=== PATIENT | female | born 1945 | race Caucasian/White ===

== ENCOUNTER → 2020-10-05 11:56 | Outpatient (CLI) | payer MEDICARE, OTHER, SELFPAY ==
--- NOTE | 2020-10-05 12:02 | DI.RAD.S_ITS ---
PROCEDURE: XR WRIST RT MIN 3V INDICATIONS: RIGHT WRIST SWELLING/PAIN TECHNIQUE: 3 views of the wrist were acquired. COMPARISON: None. FINDINGS: Bones: No fractures or dislocations. No suspicious bony lesions. Diffuse carpal joint degeneration. Sub 5 mm marginal lucency seen at the 2nd MTP joint, and the lunate. There is 2nd and 3rd MCP joint degeneration. Soft tissues: No suspicious soft tissue calcifications. IMPRESSION: Severe diffuse degenerative changes. If the patient's pain or other symptoms persist, consider further evaluation with MRI Dictated by: Isauro Sagastume M.D. on 10/05/2020 at 13:36 Approved by: Isauro Sagastume M.D. on 10/05/2020 at 13:39
[2020-10-05 12:56] LABS: Add Manual Diff / Slide Review NO; Basophils Absolute Auto 0 /uL (0-100); Basophils Percent Auto 0.5 % (0-2); Eosinophils Absolute Auto 100 /uL (0-450); Hemoglobin 12.2 g/dL (12.0-16.0); Lymphocytes Absolute Auto 1300 /uL (1100-4500); Lymphocytes Percent Auto 17.7 % (25-40); Mean Corpuscular HGB Conc 33.9 % (30-36); Mean Corpuscular Hemoglobin 31.9 PG (26-34); Mean Corpuscular Volume 93.8 fL (80-100); Monocytes Absolute Auto 500 /uL (0-900); Monocytes Percent Auto 7.1 % (3-14); Neutrophils Absolute Auto 5400 /uL (1500-7000); Neutrophils Percent Auto 73.7 % (50-75); Platelet Count 307 X10^3/uL (150-400); Red Blood Cell Count 3.84 X10^6/uL (4.0-5.2); Red Cell Distribution Width 12.5 % (11.6-14.8); White Blood Cell Count 7.3 X10^3/uL (4.5-11.0)
[2020-10-05 13:16] LABS: Erythrocyte Sedimentation Rate 34 MM/HR (0-20)
[2020-10-05 13:34] LABS: Alanine Aminotransferase 17 IU/L (<35); Albumin 4.4 g/dL (3.5-5.0); Albumin Globulin Ratio 1.3 (1.0-2.8); Alkaline Phosphatase 60 U/L (38-126); Aspartate Aminotransferase 24 IU/L (14-36); BUN Creatinine Ratio 28.6 (6-22); Bilirubin Total 0.5 mg/dL (0.2-1.3); Blood Urea Nitrogen 16 mg/dL (7-17); C-Reactive Protein Quant 1.6 mg/dL (<1.0); Calcium 9.6 mg/dL (8.4-10.2); Carbon Dioxide 33 mmol/L (22-32); Chloride 99 mmol/L (98-107); Cholesterol 240 mg/dL (140-199); Estimated Glomerular Filt Rate > 60.0 mL/min (>60); Globulin 3.3 g/dL (1.7-4.1); Glucose 95 mg/dL (80-110); HDL Cholesterol 52 mg/dL (40-60); HEMOLYSIS < 15 (0-50); LDL Cholesterol Calculated 153 mg/dL (<100); Potassium 4.9 mmol/L (3.4-5.1); Sodium 137 mmol/L (137-145); Total Protein 7.7 g/dL (6.3-8.2); Triglycerides 174 mg/dL (35-150)
[2020-10-05 14:01] LABS: TSH w/ Reflex to FT4 2.42 uIU/mL (0.47-4.68)
[2020-10-05 16:24] LABS: Rheumatoid Factor < 8.6 IU/mL (<12.0)
[2020-10-09 00:09] LABS: CCP Antibodies IgG/IgA 3 units (0-19)
== END ==
PROVIDERS: PCP Family Medicine; Referring Provider Family Medicine; Visit Provider Family Medicine
DX: M25.431 Effusion, right wrist (principal); M25.50 Pain in unspecified joint; M25.531 Pain in right wrist; M25.439 Effusion, unspecified wrist; M25.539 Pain in unspecified wrist; E78.5 Hyperlipidemia, unspecified
CPT/HCPCS: 36415; 73110; 80053; 80061; 84443; 85025; 85651; 86140; 86200; 86430

== ENCOUNTER → 2020-11-08 14:46 | Outpatient (CLI) | payer MEDICARE, OTHER, SELFPAY ==
[2020-11-08 15:40] LABS: Add Manual Diff / Slide Review NO; Basophils Absolute Auto 0 /uL (0-100); Basophils Percent Auto 0.3 % (0-2); Eosinophils Absolute Auto 0 /uL (0-450); Eosinophils Percent Auto 0.6 % (2-4); Hematocrit 34.1 % (36-46); Hemoglobin 11.6 g/dL (12.0-16.0); Lymphocytes Absolute Auto 900 /uL (1100-4500); Lymphocytes Percent Auto 11.8 % (25-40); Mean Corpuscular HGB Conc 33.8 % (30-36); Mean Corpuscular Hemoglobin 31.6 PG (26-34); Mean Corpuscular Volume 93.5 fL (80-100); Monocytes Absolute Auto 600 /uL (0-900); Monocytes Percent Auto 8.6 % (3-14); Neutrophils Absolute Auto 5700 /uL (1500-7000); Neutrophils Percent Auto 78.7 % (50-75); Platelet Count 356 X10^3/uL (150-400); Red Blood Cell Count 3.65 X10^6/uL (4.0-5.2); Red Cell Distribution Width 12.5 % (11.6-14.8); White Blood Cell Count 7.2 X10^3/uL (4.5-11.0)
[2020-11-08 15:55] LABS: C-Reactive Protein Quant 3.2 mg/dL (<1.0)
[2020-11-08 16:31] LABS: Erythrocyte Sedimentation Rate 48 MM/HR (0-20)
== END ==
PROVIDERS: PCP Family Medicine; Referring Provider Family Medicine; Visit Provider Family Medicine
DX: M25.439 Effusion, unspecified wrist (principal); M25.531 Pain in right wrist; M25.532 Pain in left wrist
CPT/HCPCS: 36415; 85025; 85651; 86140

== ENCOUNTER 2021-02-19 16:44 | Emergency (ER) | payer MEDICARE, OTHER, SELFPAY ==
[2021-02-19] VITALS (10 sets, daily range): BP systolic 126–216; BP diastolic 61–93; PULSE 67–77; RESP 14–16; TEMP 36.7; O2SAT 97–100; BMI 24.9
--- NOTE | 2021-02-19 16:50 | DI.RAD.S_ITS ---
PROCEDURE: XR WRIST LT MIN 3V INDICATIONS: fall with pain TECHNIQUE: 4 views of the wrist were acquired. COMPARISON: [facility], CR, XR WRIST RT MIN 3V, 10/05/2020, 12:14. FINDINGS: Bones: Mildly comminuted, displaced fracture of the distal left radius with dorsal angulation of the distal fracture fragment. No definite intra-articular extension. Moderate degenerative changes of the radiocarpal joint. Severe degenerative changes of the left 1st carpometacarpal joint.. No suspicious bony lesions. Scaphoid view: Visualized portion of the scaphoid appear intact. Soft tissues: No suspicious soft tissue calcifications. IMPRESSION: Mildly comminuted, displaced distal left radial fracture with dorsal angulation of the distal fracture fragment. No definite intra-articular extension identified. Moderate-severe background degenerative changes of the left 1st carpometacarpal joint and distal radiocarpal joint. Dictated by: Jimy oY M.D. on 02/19/2021 at 18:02 Approved by: Jimy Yo M.D. on 02/19/2021 at 18:04
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
[2021-02-19] MEDS: LIDO 1%/SOD BICARB 8.4% (10ML) 10 ML SYRINGE INJ (17:53)
[2021-02-19] MEDS: HYDROMORPHONE 1 MG INJ IM (18:01)
--- NOTE | 2021-02-19 18:33 | DI.RAD.S_ITS ---
PROCEDURE: XR WRIST LT MIN 3V INDICATIONS: post reduction TECHNIQUE: 3 views of the wrist were acquired. COMPARISON: [facility], CR, XR WRIST LT MIN 3V, 02/19/2021, 16:59. FINDINGS: Bones: Status post interval closed reduction and splinting of known mildly comminuted distal left radial fracture. There appears to be a fracture line extending to the articular surface of the radiocarpal joint. Post reduction alignment is improved. Mild persistent dorsal displacement of the distal fracture fragment. Stable appearance of advanced degenerative changes of the left 1st carpometacarpal joint. No suspicious bony lesions. Soft tissues: No suspicious soft tissue calcifications. IMPRESSION: Status post interval closed reduction and splinting of mildly comminuted distal left radial fracture with intra-articular extension to the distal radiocarpal joint. There is improved alignment with persistent dorsal displacement of the distal fracture fragment. Redemonstration of advanced background degenerative changes of the left hand and wrist. Dictated by: Jimy Yo M.D. on 02/19/2021 at 19:19 Approved by: Jimy Yo M.D. on 02/19/2021 at 19:22
== END 2021-02-19 19:02 | disposition home or self-care (01) ==
PROVIDERS: Emergency Provider Emergency Medicine; PCP Family Medicine
DX: S01.01XA Laceration without foreign body of scalp, initial encounter (principal); S52.502A Unspecified fracture of the lower end of left radius, initial encounter for closed fracture; W19.XXXA Unspecified fall, initial encounter
CPT/HCPCS: 12001; 25605; 29125; 70450; 73110; 96372; 99284; J1170

== ENCOUNTER → 2021-02-24 10:18 | Outpatient (CLI) | payer MEDICARE, OTHER, SELFPAY ==
[2021-02-24 11:27] LABS: COVID19 -Nasal RAPID Negative (Negative)
== END ==
PROVIDERS: PCP Family Medicine; Visit Provider Physician Assistant
DX: Z01.812 Encounter for preprocedural laboratory examination (principal); Z20.822 Contact with and (suspected) exposure to COVID-19
CPT/HCPCS: 87635; C9803

== ENCOUNTER 2021-02-26 10:41 | Day surgery (SDC) | payer MEDICARE, OTHER, SELFPAY ==
[2021-02-22 07:59] VITALS: BMI 23.0
[2021-02-26] VITALS (8 sets, daily range): BP systolic 125–151; BP diastolic 64–88; PULSE 67–77; RESP 11–19; TEMP 36.1–36.6; O2SAT 96–100; BMI 23.0
[2021-02-26] MEDS: LACTATED RINGERS 1,000 ML 42 ML IV (11:21)
--- NOTE | 2021-02-26 12:42 | PM.PREOP ---
Pre-operative Note COVID-19 COVID-19 status: Positive Result date/Date tested (Pos, Neg/Pending): 02/24/21 Interval Note History & Physical reviewed/Exam performed by Physician: Yes Changes to H&P: No
[2021-02-26] MEDS: CEFAZOLIN 1 GM/50 ML FROZ.PIGGY IV (13:07)
--- NOTE | 2021-02-26 13:31 | SUR.OPER ---
Supine on padded OR bed, head on pillow, RIGHT ARM secured on padded arm board at <90 degrees abduction, legs uncrossed, safety belt at thigh, tape over blanket over lower legs.LEFT ARM TO HAND TABLE
[2021-02-26] MEDS: BUPIVACAINE 0.5% (PF) VIAL 30 ML INJ (13:43)
--- NOTE | 2021-02-26 14:35 | P.OP_ITS ---
Operative Date/Time/Diagnoses Date of procedure: 02/26/21 Time of procedure: 14:35 Pre-op diagnosis: Left distal radius fracture Post-op diagnosis: same Procedure & Clinicians Procedure: Open reduction internal fixation of left distal radius fracture Same procedure as scheduled: Yes Indications: The patient is a 75-year-old woman who broke her non dominant left wrist last week in a fall. She has a displaced fracture and after discussion the risks benefits and alternatives she has agreed open reduction internal fixation. Risks discussed included but were not limited to: Failure to improve, stiffness, infection, nerve damage, deep venous thrombosis, pulmonary embolism, stroke, myocardial infarction, permanent paralysis, aspiration p neumonia and . Surgeon: Tyler Hill Click Yes if Unassisted: Yes Anesthesia Type: General and Local Operative Notes Findings: Anatomic fracture reduction Closure Type: primary Specimen(s): none sent Prosthetic devices, grafts, tissues, transplants, or devices: Implants used in this procedure were manufactured by the [employer] and included a left distal radius plate with 5 distal and 2 proximal screws. Applied: implant(s) Estimated Blood Loss (mL): 10 Tourniquet time (min): 36 Procedure in detail: The patient was seen in the preoperative area where she identified her left wrist as the operative site and this was marked with my initials. She received preoperative antibiotics and was taken to the operating room and placed on the operating room table in a supine position. She underwent induction with general anesthetic. Following the onset of general anesthesia, her splint was removed and a tourniquet was placed about her proximal left arm. Left arm was prepared from the fingertips to the tourniquet with ChloraPrep and draped through sterile drapes. Prior to prepping and draping a time study technologist-out was performed. The left arm was elevated and exsanguinated with an Esmarch bandage. Approximately 8 cm incision was created overlying the flexor carpi radialis tendon sheath with a slight diagonal band distally at the wrist crease. The wrist crease was not fully crossed. The sheath of the flexor carpi radialis was opened and the tendon retracted to the ulnar side. The floor of the sheath was opened. The flexor pollicis longus was identified and retracted to the ulnar side. The pronator quadratus was then released from the radial side of the distal radius and elevated from the palmar surface of the bone again taken to the ulnar side. A self retaining retractor was placed. The fracture was booked open and hematoma cleaned from the fracture site. A reduction maneuver was performed. The appropriate length distal radius plate was applied to the radial shaft and the position of the plate was verified as being appropriate on the lateral view on fluoroscopy. The 1st screw was placed through the slotted hole on the proximal part of the plate. I then confirmed that the reduction against the plate was appropriate and a screw was placed distally. The initial distal screw was a nonlocking screw to bring the distal fragment to the plate. This was repeated with a 2nd nonlocking screw. An additional 3 screws were placed which were locking screws. After confirming that all the screws were appropriately positioned and none had penetrated the wrist joint, the final proximal screw was placed. Final AP and lateral fluoroscopic views were obtained. At this point the wound was irrigated, the pronator quadratus was laid back across the plate. Closure was not performed as the bulk of the plate prevented reapproximation of the muscle to its origin. The remaining tendons were allowed to fall into their anatomic position. The tourniquet was deflated and hemostasis obtained with electrocautery. The wound was closed with interrupted 3-0 Vicryl and a running 4-0 Monocryl suture with Steri-Strips. The superficial tissues were injected with 2 mL 0.5% Marcaine for postoperative pain control. Dressings of sterile 4x4s, sterile cast padding and a volar splint were applied. The patient was then transferred from the operating room to the recovery room in good condition having tolerated the procedure well. Complications: none Post-operative Condition: stable Disposition: PACU Plan for aftercare: The patient will be maintained in a postoperative splint till follow-up. At that point she will be allowed to wear removable Velcro splint for an additional 4-6 weeks. She will be discharged today with follow-up in 2 weeks. A prescription for oxycodone has been sent to the pharmacy for her.
[2021-02-26] MEDS: OXYCODONE IR 5 MG TABLET PO (14:57)
[2021-02-26] MEDS: OXYCODONE/ACETAMINOPHEN 5/325 TABLET 1 TAB PO (15:26)
== END 2021-02-26 15:40 | disposition home or self-care (01) ==
PROVIDERS: PCP Family Medicine; Referring Provider Orthopaedic Surgery; Visit Provider Orthopaedic Surgery
PROC: (CPT 25607; principal; 2021-02-26 12:45)
DX: S52.532A Colles' fracture of left radius, initial encounter for closed fracture (principal); W19.XXXA Unspecified fall, initial encounter; M06.9 Rheumatoid arthritis, unspecified; M81.0 Age-related osteoporosis without current pathological fracture
CPT/HCPCS: 25607; J1100; J2405; J2704; J3010

== ENCOUNTER → 2021-07-05 11:20 | Outpatient (CLI) | payer MEDICARE, OTHER, SELFPAY ==
[2021-07-05 12:03] LABS: COVID19 -Nasal RAPID Negative (Negative)
== END ==
PROVIDERS: PCP Family Medicine; Visit Provider Specialist
DX: Z01.812 Encounter for preprocedural laboratory examination (principal); Z20.822 Contact with and (suspected) exposure to COVID-19
CPT/HCPCS: 87635

== ENCOUNTER 2021-07-06 06:32 | Day surgery (SDC) | payer MEDICARE, OTHER, SELFPAY ==
[2021-07-04 12:37] VITALS: BMI 24.1
[2021-07-06] VITALS (15 sets, daily range): BP systolic 120–148; BP diastolic 54–92; PULSE 59–88; RESP 9–18; TEMP 36.3–37.2; O2SAT 96–100; BMI 24.1
--- NOTE | 2021-07-06 | PATH_ITS ---
[facility] Accession Number: [id number] . 01 Material submitted: . uterus - UTERUS AND CERVIX . 01 Diagnosis: A. Uterine and Cervix, Hysterectomy: - Cervix: Denuded, extensively inflamed with focal parakeratosis consistent with prolapse-type changes, and with mild atypia, favor reactive; negative for dysplasia and malignancy. - Endometrium: Benign nonproliferative endometrium with features of atrophy. - Myometrium: Within normal limits. MRV 07/10/2021 1628 Local . 01 Electronically signed: . Juliet Guidry MD, Pathologist NPI- [id number] . 01 Gross description: . The specimen is received in formalin, labeled uterus and cervix, and consists of a 53 g uterus and cervix measuring 8.0 cm from superior fundus to cervix by 4.7 cm from cornu to cornu by 2.8 cm from anterior to posterior. The serosa is keenan-pink and smooth with multiple irregular translucent subserosal cysts ranging from 0.1 cm to 0.3 cm. The keenan-pink, wrinkled, and focally hemorrhagic ectocervix measures 4.0 x 3.2 cm, and there is a 0.5 x 0.2 cm os. The specimen is bivalved to reveal a keenan, herringbone, and cystic endocervix. The endometrial cavity measures 3.0 x 1.5 cm and displays a keenan-pink, glistening endometrium measuring 0.1 cm in thickness. The myometrium is keenan-pink and trabeculated, measuring 1.4 cm in thickness. Duty Engineer sections are submitted. . A1: Anterior cervix. A2: Posterior cervix. A3: Anterior uterus, full-thickness cross-section. A4: Posterior uterus, full-thickness cross-section. ([id number]) /FRR 07/07/2021 1625 [facility] . 01 Pathologist provided ICD-10: N81.4, N81.10 . 01 CPT . 933688 Performed at: 01 [facility] [address] [place] [address], [place], [place] [id number] MD Thomas Marie MD Phone: [phone]
[2021-07-06] MEDS: LACTATED RINGERS 1,000 ML 100 ML IV ×3 (07:02→21:48)
--- NOTE | 2021-07-06 07:23 | PM.PREOP ---
Pre-operative Note COVID-19 COVID-19 status: Negative Result date/Date tested (Pos, Neg/Pending): 07/05/21 Interval Note History & Physical reviewed/Exam performed by Physician: Yes Changes to H&P: No
[2021-07-06] MEDS: CEFAZOLIN 1 GM VIAL 2 GM IV (09:58)
--- NOTE | 2021-07-06 10:09 | SUR.OPER ---
Lithotomy on padded OR bed, head on pillow, arms secured on padded arm boards at <90 degrees abduction. Legs secured in padded yellow fins stirrups.
[2021-07-06] MEDS: BUPIVACAINE 0.5% (PF) VIAL 30 ML INJ (10:26)
[2021-07-06] MEDS: ACETAMINOPHEN IV 1,000 MG/100 ML VIAL 400 MG IV (10:33)
--- NOTE | 2021-07-06 11:46 | PM.OP.1 ---
Operative Date/Time/Diagnoses Date of procedure: 07/06/21 Time of procedure: 11:46 Pre-op diagnosis: Symptomatic uterovaginal prolapse Post-op diagnosis: same Procedure & Clinicians Procedure: Total vaginal hysterectomy with anterior and posterior repair and bilateral sacrospinous ligament fixation Same procedure as scheduled: Yes Indications: Symptomatic partial uterovaginal prolapse Surgeon: Ximena Ruiz Project Portfolio Analyst: Korey Dhillon Click Yes if Unassisted: No Anesthesia Type: General Operative Notes Findings: Cystocele, rectocele, uterine prolapse with normal uterus, tubes status post tubal ligation and ovaries Closure Type: primary Specimen(s): other (Uterus) Applied: catheter (Varghese) and other (Vaginal packing) Estimated Blood Loss (mL): 50 Blood products transfused: none Procedure in detail: Patient was brought to the operating room where she was placed in yellowfin stirrups and prepped and draped in the usual sterile fashion. A check system was reviewed prior to the beginning of the case. Pulsatile stockings were in place and functional throughout the case. Warming was in place. 2 g of Ancef were in prior to beginning of the case. A Varghese catheter was placed. A single-tooth tenaculum was placed on the posterior lip of the cervix and a colpotomy incision was made. The peritoneum was sutured to the posterior vaginal wall. The uterosacral ligaments were clamped cut and ligated with 0 Vicryl suture which was used throughout the rest the case unless otherwise indicated. A scalpel was used to circumscribe the cervix and the bladder pushed superiorly. The bladder pillars were clamped cut and ligated. Keeping the bladder pushed superiorly sequential bites were taken of the cardinal and broad ligaments with the LigaSure. Anterior colpotomy incision was made and the bladder held away from the uterus. The rest of the attachments of the uterus including the broad ligament and the utero-ovarian ligaments were clamped and ligated. The uterus was removed intact. Dr. Dhillon was present to assist with retraction. A dilute solution of 1% lidocaine with epinephrine was injected over the cystocele. An incision was made over the cystocele and the incision dissected laterally. Plicating sutures were made over the cystocele with 2 0 Vicryl suture. The incision was closed with 2-0 Vicryl suture. The vaginal cuff was closed with [id number] sutures of 0 Vicryl suture. Next a wedge shaped tissue was taken out of the posterior vaginal opening. The area over the rectocele was injected with a dilute solution of 1% lidocaine with epinephrine. An incision was made over the rectocele and enterocele with the scalpel. The dissection was undertaken laterally. Prolene suture with the Capio passer was placed through the uterosacral ligament on the right side and sutured to the underside of the vaginal cuff. Same procedure was performed on the left side through the muscle above the uterosacral ligament. The suture was placed through the underside of the vaginal cuff. A finger was placed in the rectum to confirm there was no suture through the mucosa. 0 Vicryl suture was used to plicate over the rectocele. The uterosacral sutures were tightened down. Plication sutures of 0 Vicryl suture were placed between the vagina and rectum. The vaginal incision was closed with 2-0 Vicryl suture. The perineal body was built up with interrupted 0 Vicryl sutures. The skin was closed with the 2-0 Vicryl suture. Vaginal packing was placed in the vagina and the Varghese left in place. Counts of instruments and sponges were correct. The patient went to recovery room in good condition. Dr. Dhillon was present for the case to assist in retraction. Complications: none Post-operative Condition: stable Disposition: Acute Care Plan for aftercare: Remove Varghese and vaginal packing in a.m. home after postvoid residual check
--- NOTE | 2021-07-06 12:09 | SUR.PHASEI ---
Pt arrived with oral airway, out after 2 minutes, Dr Ruiz to bedside, briefly spoke with pt, pt denied pain, nausea, tolerated ice chips. Report called to Shanique.
[2021-07-06] MEDS: HYDROCODONE/ACET 5/325 TABLET 2 TAB PO ×3 (13:45→23:35)
--- NOTE | 2021-07-06 13:57 | SUR.PHASEI ---
Late entrY: Pt transported to room 210 on room air and left in stable condition. Nina pad remained c/d/i.
[2021-07-06] MEDS: IBUPROFEN 600 MG TABLET PO (16:24)
--- NOTE | 2021-07-06 18:43 | PC.NURSE ---
Addendum entered by Misa Rowland R.N. 07/06/21 21:32: One vicodin with late dinner for lower pelvic pain 4/10. Pt reports Dr. Ruiz stated feels this could be r/t vaginal packing. Pt reports good pain relief with single tablet. Ambulatory in hallway with STAMPING PRESS OPERATOR standby. Original Note: Pt up to chair with STAMPING PRESS OPERATOR assistance. Scant amount vag bleeding on pad per STAMPING PRESS OPERATOR. Pt given ibuprofen to manage pain with good results. Returned to bed with minimal assistance. No vaginal bleeding observed and pad was placed against pt's periarea while in bed. BL calf scd's in place. Pt positions self independently in bed and reports able to sleep. Dr. Ruiz in to see pt. Pt awake and alert taking evening meal in bed. Varghese to gravity with clear, yellow urine. Pt reports pain 4-5/10 deep in pelvis and was given one vicodin per request. Will continue to monitor for relief.
[2021-07-06] MEDS: DOCUSATE 100 MG CAPSULE 200 MG PO (20:35)
[2021-07-07] MEDS: HYDROCODONE/ACET 5/325 TABLET 2 TAB PO ×4 (03:00→15:22)
[2021-07-07 03:03] VITALS: BP 127/57; PULSE 89; RESP 16; TEMP 36.4; O2SAT 98
[2021-07-07 07:00] VITALS: O2SAT 98
[2021-07-07 07:44] LABS: Add Manual Diff / Slide Review NO; Basophils Absolute Auto 0 /uL (0-100); Basophils Percent Auto 0.2 % (0-2); Eosinophils Absolute Auto 0 /uL (0-450); Hematocrit 31.9 % (36-46); Hemoglobin 10.7 g/dL (12.0-16.0); Lymphocytes Absolute Auto 1200 /uL (1100-4500); Lymphocytes Percent Auto 9.5 % (25-40); Mean Corpuscular HGB Conc 33.5 % (30-36); Mean Corpuscular Hemoglobin 33.8 PG (26-34); Mean Corpuscular Volume 100.8 fL (80-100); Monocytes Absolute Auto 900 /uL (0-900); Monocytes Percent Auto 7.3 % (3-14); Neutrophils Absolute Auto 10700 /uL (1500-7000); Platelet Count 255 X10^3/uL (150-400); Red Blood Cell Count 3.17 X10^6/uL (4.0-5.2); Red Cell Distribution Width 13.5 % (11.6-14.8); White Blood Cell Count 12.9 X10^3/uL (4.5-11.0)
[2021-07-07] MEDS: FLUoxetine 10 MG CAPSULE 30 MG PO (08:31)
[2021-07-07] MEDS: DOCUSATE 100 MG CAPSULE 200 MG PO (08:31)
[2021-07-07 08:33] VITALS: BP 124/67; PULSE 66; RESP 16; TEMP 36.6; O2SAT 98
--- NOTE | 2021-07-07 08:59 | PM.DS.1 ---
History of Present Illness History of Present Illness Date Patient Seen: 07/07/21 Time Patient Seen: 08:59 Chief complaint: OPB Narrative: Patient with symptomatic uterovaginal prolapse, status post vaginal hysterectomy with anterior-posterior repair and sacrospinous ligament fixation on 07/06/2021 Discharge Providers Provider Discharge Date: 07/07/21 Primary care physician: Jose Ribeiro MD Discharge provider: Ximena Ruiz MD Summary Hospital Course Discharge Diagnosis: symptomatic uterovaginal prolapse Hospital Course: Patient underwent a vaginal hysterectomy with anterior-posterior repair and sacrospinous ligament fixation on 07/06/2021 for uterine prolapse. Status at Discharge Cognitive/behavioral status at discharge: oriented Functional status at discharge: independent ambulation Overall status at discharge: patient is progressing back to baseline Time Spent with Patient Time spent: Less than 30 minutes Exam Vital Signs (past 8 hours): - 07/07/21 03:03 07/07/21 07:00 07/07/21 08:33 Temperature 97.6 F 97.8 F Pulse Rate 89 66 Respiratory Rate 16 16 Blood Pressure 127/57 L 124/67 Pulse Oximetry 98 98 98 Oxygen Delivery Method Room Air Oxygen Flow Rate 0 Narrative Exam Narrative: Patient's abdomen is soft, nontender. The vaginal packing removed and was not saturated with blood. Extremities without edema and nontender. Objective Labs Result Diagrams: 07/07/21 07:05 Labs: Laboratory Results - last 24 hr 07/07/21 07:05 WBC 12.9 H RBC 3.17 L Hgb 10.7 L Hct 31.9 L MCV 100.8 H MCH 33.8 MCHC 33.5 RDW 13.5 Plt Count 255 Neut % (Auto) 83.0 H Lymph % (Auto) 9.5 L [place] % (Auto) 7.3 Eos % (Auto) 0.0 L Baso % (Auto) 0.2 Neut # (Auto) 96802 H Lymph # (Auto) 1200 [place] # (Auto) 900 Eos # (Auto) 0 Baso # (Auto) 0 PFSH Medical History (Updated 04/23/21 @ 18:36 by Shanika Blanchard MD) Bladder leak (~2007) Chicken pox Colon polyps (~2016) Depression (~1997) Foot pain (~2013) Fractures (~1949) Increased urinary frequency Measles Mumps Rubella Uterine prolapse (~2018) Surgical History (Updated 07/06/21 @ 11:43 by Ximena Ruiz MD) Anesthesia History of section (~06/06/88) History of foot surgery (~2013) History of open reduction and internal fixation (ORIF) procedure (02/26/21) Previous section Rotator cuff syndrome (~1990) Family History Father History of heart disease Brother Prostate cancer Grandfather Cancer Grandmother Cancer Social History household members: none Smoking Status: Never smoker alcohol intake: current Discharge Assessment & Plan Assessment and Plan Assessment: Postoperative day 1 doing well. Plan of Treatment: Patient will be discharged after postvoid residual check. She has a follow-up appointment in 2 weeks unless she does not pass her postvoid residual. Patient already has her postop appointment in 2 weeks and pain medicine. Routine precautions reviewed. Discharge Plan Discharge Plan Patient Disposition: Home Provider Discharge Comment: Home after postvoid residual check. Discharge orders & Medications Discharge Orders: Discharge (Order); Ordered 07/07/21 Ordered By: Ximena Ruiz Prescriptions: Continued calcium carbonate 600 mg calcium (1,500 mg) tablet 600 mg PO DAILY RF: 0 vitamin K2 40 mcg tablet 40 mcg PO DAILY RF: 0 fluoxetine 10 mg capsule 30 mg PO DAILY Qty: 270 RF: 3 mirabegron 25 mg tablet extended release 24 hr 25 mg PO DAILY Qty: 30 RF: 3 methotrexate sodium 2.5 mg tablet See Rx Instructions PO QWEEK RF: 0 Discontinued CMP Estradiol 0.0125% Vaginal Cream 1 g vaginal 3XW Qty: 30 RF: 3 Follow up/Referrals: Ximena Ruiz MD [Physician] - As previously scheduled (2 week) Jose Ribeiro MD [Primary Care Provider] - Diet/Activity/Treatments Diet: Regular Activity: Nothing in vagina for 6 weeks Skin/Wound/Dressing Care Report to your healthcare provider any signs of infection, such as:: chills, fever and increased pain Visit Report/Discharge Packet Instructions: DI for Hysterectomy Discharge Data Primary Care Provider: Jose Ribeiro Attending Provider: Ximena Ruiz
--- NOTE | 2021-07-07 09:15 | CM.DANOTE ---
DCP: Case received, EMR reviewed and met with patient. Introduced self and role. Was able to obtain information regarding patient's baseline activity status prior to surgery, as well as her current living situation. DCP assessment completed with information currently available. Patient is a 75 year old female who admitted yesterday morning to the care of the RADIOLOGY ADMINISTRATOR team. PCP: Dr. Ribeiro. Payer: confirmed: Medicare/[facility]. Patient came to the hospital via private vehicle for a surgical procedure. She had a total vaginal hysterectomy. Patient has had history of uterovaginal prolapse. Met with patient in her room. She is alert and oriented, pleasant, she was laying in bed. She resides here in [place] alone, lives in apartments. She is independent at her baseline, she actively walks, and uses hiking sticks on uneven ground. She had a daughter named Tri, who lives a mile away and supportive. She also has a neighbor that lives down stairs that can also assist her if needed. Patient does drive. P: Patient is to be discharged home today. Tracey Bone RN/Medical Service Technician
--- NOTE | 2021-07-07 10:55 | PC.NURSE ---
Addendum entered by Yoli Tenorio R.N. 07/07/21 15:50: Dr. Ruiz updated on patient status. Patient given instructions regarding hinton care and verbalizes understanding to f/u with Dr. Ruiz on Friday. Addendum entered by Yoli Tenorio R.N. 07/07/21 15:36: Patient at rest, up to restroom twice attempting to void. Patient bladder scanned at 1345, per the bladder scanner patient had 250ml in bladder. Dr. Ruiz called to confirm patient had yet to void, updated with patient status and bladder scanned amount. Given verbal orders to place hinton and have patient see Dr. Ruiz on Friday. Patient attempted to void once more before placement, 50cc out, PVR was 156ml per bladder scanner. Hinton place, 325cc out. Patient tolerated. Patient reports pain 5/10, 1 tab [place] administered per patient request. Original Note: in to see patient, hinton removed. Patient up to void, unable to urinate. Will try again later, would like to rest at this time. Denies pain while at rest, call light in reach.
[2021-07-07 15:00] VITALS: O2SAT 98
[2021-07-07 15:50] VITALS: BP 134/69; PULSE 74; RESP 17; TEMP 36.4; O2SAT 98
--- NOTE | 2021-07-07 21:09 | PC.NURSE ---
Evening Shift/Discharge Note- Patient discharged home per Dr. Ruiz. Discharge instructions and educations reviewed with patient and signed. IV line removed and bandaid applied. Patiet instructioned on hinton care as she is being d/c'ed home with [facility]. assisted patient to dress and get hinton bag inside sweat pants. Patient packe dup all personal belongings and called daughter to supervisor opening and picking. Patient was asked to turn auto transmission specialist gregg when daughter arrived so one of us could take patient in wheelchair to private car. Patient did not call for ride to car, patient was seen by another RN being wheeled to car by daughter at 1720
== END 2021-07-07 17:20 | disposition home or self-care (01) ==
LOC: OR 06:34 → AC 06:36
PROVIDERS: PCP Family Medicine; Referring Provider Specialist; Visit Provider Specialist
PROC: (CPT 58260; principal; 2021-07-06 07:45)
PROC: (CPT 58260; 2021-07-06 07:45)
DX: N81.2 Incomplete uterovaginal prolapse (principal)
CPT/HCPCS: 58260; 57260; 57282; 36415; 85025; J0131; J0690; J1100; J2250; J2405; J3010

== ENCOUNTER → 2021-07-18 17:52 | Outpatient (CLI) | payer MEDICARE, OTHER, SELFPAY ==
[2021-07-06 06:40] VITALS: BMI 24.1
--- NOTE | 2021-07-18 17:53 | DI.MG.S_ITS ---
BILATERAL DIGITAL SCREENING MAMMOGRAM 3D/2D WITH CAD: 07/18/2021 CLINICAL: Routine screening. Comparison is made to exams dated: 11/01/2019 mammogram and 10/25/2018 mammogram - outside. The tissue of both breasts is heterogeneously dense. This may lower the sensitivity of mammography. Current study was also evaluated with a Computer Aided Detection (CAD) system. There are benign vascular calcifications in both breasts. No significant masses, calcifications, or other findings are seen in either breast. There has been no significant interval change. IMPRESSION: BENIGN There is no mammographic evidence of malignancy. A 1 year screening mammogram is recommended. This exam was interpreted at Station ID: [id number]. NOTE: For mammograms, a report in lay terms will be sent to the patient. Approximately 15% of breast malignancies will not be visualized mammographically. In the management of a palpable breast mass, a negative mammogram must not discourage biopsy of a clinically suspicious lesion. Electronically Signed By: Harry marin/memo:07/19/2021 12:23:48 letter sent: Normal Exam ACR BI-RADS Category 2: Benign Finding(s) [id number]
== END ==
PROVIDERS: PCP Family Medicine; Referring Provider Family Medicine; Visit Provider Family Medicine
DX: Z12.31 Encounter for screening mammogram for malignant neoplasm of breast (principal)
CPT/HCPCS: 77063; 77067

== ENCOUNTER → 2021-08-03 11:14 | Outpatient (CLI) | payer MEDICARE, OTHER, SELFPAY ==
[2021-07-06 06:40] VITALS: BMI 24.1
--- NOTE | 2021-08-03 11:15 | DI.RAD.S_ITS ---
PROCEDURE: XR DEXA AXIAL SKELETON INDICATIONS: Estrogen Deficiency COMPARISON: None. FINDINGS: This blank DEXA report has been sent in error by the PACS system. The correct and complete report will be forthcoming in 1-2 days. Thank you for your patience and understanding. Dictated by: Chastity Singer MD, PhD on 08/04/2021 at 8:08 Approved by: Chastity Singer MD, PhD on 08/04/2021 at 8:08
== END ==
PROVIDERS: PCP Family Medicine; Referring Provider Physician Assistant; Visit Provider Physician Assistant
DX: Z78.0 Asymptomatic menopausal state (principal); M85.88 Other specified disorders of bone density and structure, other site; M06.9 Rheumatoid arthritis, unspecified
CPT/HCPCS: 77080

== ENCOUNTER → 2021-08-16 12:08 | Outpatient (CLI) | payer MEDICARE, OTHER, SELFPAY ==
[2021-07-06 06:40] VITALS: BMI 24.1
== END ==
PROVIDERS: PCP Family Medicine; Visit Provider Specialist
DX: R35.0 Frequency of micturition (principal)
CPT/HCPCS: 87086

== ENCOUNTER → 2022-02-16 09:00 | Outpatient (CLI) | payer MEDICARE, OTHER, SELFPAY ==
[2021-07-06 06:40] VITALS: BMI 24.1
[2022-02-16 10:29] LABS: Cholesterol 227 mg/dL (140-199); HDL Cholesterol 49 mg/dL (40-60); LDL Cholesterol Calculated 163 mg/dL (<100); Triglycerides 77 mg/dL (35-150)
== END ==
PROVIDERS: PCP Family Medicine; Referring Provider Physician Assistant; Visit Provider Physician Assistant
DX: E78.2 Mixed hyperlipidemia (principal)
CPT/HCPCS: 36415; 80061

== ENCOUNTER → 2022-05-24 12:28 | Outpatient (CLI) | payer MEDICARE, OTHER, SELFPAY ==
[2021-07-06 06:40] VITALS: BMI 24.1
== END ==
PROVIDERS: PCP Family Medicine; Visit Provider Nurse Practitioner Family
DX: R30.0 Dysuria (principal)
CPT/HCPCS: 87086

== ENCOUNTER → 2022-06-24 09:42 | Outpatient (CLI) | payer MEDICARE, OTHER, SELFPAY ==
[2021-07-06 06:40] VITALS: BMI 24.1
[2022-06-24 11:05] LABS: COVID19 -Nasal RAPID Negative (Negative)
== END ==
PROVIDERS: PCP Family Medicine; Visit Provider Surgery
DX: Z20.822 Contact with and (suspected) exposure to COVID-19 (principal); Z01.812 Encounter for preprocedural laboratory examination
CPT/HCPCS: 87635; C9803

== ENCOUNTER 2022-06-25 07:36 | Day surgery (SDC) | payer MEDICARE, OTHER, SELFPAY ==
[2021-07-06 06:40] VITALS: BMI 24.1
[2022-06-25 07:47] VITALS: BP 137/78; PULSE 89; RESP 15; TEMP 36.5; O2SAT 98; BMI 25.2
[2022-06-25] MEDS: LACTATED RINGERS 1,000 ML 42 ML IV (07:58)
--- NOTE | 2022-06-25 08:28 | PM.HP.1 ---
History of Present Illness History of Present Illness Date Patient Seen: 06/25/22 Time Patient Seen: 08:28 Chief complaint: SDC Narrative: The patient presents for colorectal screening. Most recent colonoscopy 2015 at an outside institution demonstrated 1 benign polyp.. No personal or family history of colon cancer. On further history denies any recent gastrointestinal symptoms. No nausea, vomiting, abdominal pain, loss of appetite, unexplained weight loss, change in bowel habits, diarrhea, constipation, melena, hematochezia, or bright red blood per rectum. Patient History Medical History Bladder leak (~2007) Chicken pox Colon polyps (~2016) Depression (~1997) Foot pain (~2013) Fractures (~1949) Increased urinary frequency Measles Mumps Rubella Screening for malignant neoplasm of colon Tubulovillous adenoma of colon Uterine prolapse (~2018) Surgical History Anesthesia H/O hysterectomy for benign disease (~07/06/21) History of section (~06/06/88) History of foot surgery (~2013) History of open reduction and internal fixation (ORIF) procedure (02/26/21) Previous section Rotator cuff syndrome (~1990) Family & Social History Family History Father History of heart disease Brother Prostate cancer Grandfather Cancer Grandmother Cancer Social History: household members none Tobacco & Substance use: Smoking Status Never smoker alcohol intake current alcohol intake frequency holiday/special occasion Substance Use Type does not use Meds Home Medications and Allergies Home Medications Medication Instructions Recorded Confirmed Type methotrexate sodium 2.5 mg tablet See Rx Instructions PO QWEEK 06/26/21 06/25/22 History calcium carbonate 600 mg-vitamin cap PO 07/25/21 05/24/22 History D3 10 mcg (400 unit) capsule cholecalciferol (vitamin D3) 50 50 mcg PO DAILY 07/25/21 06/25/22 History mcg (2,000 unit) capsule fluoxetine 10 mg capsule 30 mg PO DAILY #270 caps 07/25/21 06/25/22 Rx kzafpeyo-pvw-mhctd ac 400 tab PO 07/25/21 05/24/22 History mcg-calcium carb 500 mg-vit K1 20 mcg tablet (Women's 50 Plus Multivitamin) turmeric root extract 500 mg 500 mg PO DAILY 07/25/21 05/24/22 History capsule vitamin K2 100 mcg capsule 600 mcg PO DAILY 07/25/21 05/24/22 History mirabegron 25 mg tablet,extended 25 mg PO DAILY urge urinary 10/15/21 06/25/22 Rx release 24 hr (Myrbetriq) incontinence #30 tabs scopolamine base 1 mg over 3 days 1 patch transdermal Q3D PRN motion 03/07/22 05/24/22 Rx transdermal patch sickness #10 ea sodium,potassium,mag sulfates 17.5 See Rx Instructions PO .COMPLEX 06/06/22 Rx gram-3.13 gram-1.6 gram oral soln #354 mL (Suprep Bowel Prep Kit) Allergies Allergy/AdvReac Type Severity Reaction Status Date / Time No Known Drug Allergies Allergy Verified 06/25/22 07:53 Exam Vital Signs (past 8 hours): - 06/25/22 07:47 Temperature 97.7 F Pulse Rate 89 Respiratory Rate 15 Blood Pressure 137/78 Pulse Oximetry 98 Oxygen Delivery Method Room Air Oxygen Delivery Method Room Air Narrative Exam Narrative: General adult woman alert oriented no acute distress Chest nonlabored respirations Abdomen soft nontender nondistended Assessment & Plan Assessment & Plan narrative: The patient requires colorectal screening and colonoscopy is recommended. Technical details were discussed. Risks, benefits, alternatives explained. Risks including but not limited to myocardial infarction, aspiration, bleeding, pain, missed lesion, incomplete examination, need for further radiographic studies, colonic perforation, and need for major abdominal surgery were discussed. All questions were answered to their satisfaction, and they are in agreement with this plan. Time Spent With Patient Critical Care time: I spent a total of [] minutes of critical care time on this patient's care today; this time is exclusive of procedural time.
[2022-06-25] MEDS: MIDAZOLAM 5 MG/5 ML VIAL 7 MG IV (08:57)
[2022-06-25] MEDS: fentaNYL 100 MCG/2 ML INJ 175 MCG IV (08:59)
--- NOTE | 2022-06-25 09:08 | PM.OP.COLON ---
Operative Date/Time/Diagnoses Date of procedure: 06/25/22 Time of procedure: 09:08 Pre-op diagnosis: personal history of colonic polyps Post-op diagnosis: same Procedure & Clinicians Study performed: colonoscopy Same procedure as scheduled: Yes Indications: personal history of colonic polyps Surgeon: Sohail Alfonso Procedure Notes Procedure in detail: Medications: Conscious sedation using 7mg IV midazolam and 175mcg IV of fentanyl The history and physical was performed/updated and the patient is ASA class is 2. The procedure was discussed in detail with the patient. Potential risks complications including infection, bleeding, missed diagnosis, perforation, need for surgery, and were explained. Their questions were answered and informed consent was obtained. Patient was brought to the procedure room and placed standard monitoring equipment. The patient's vital signs were monitored continuously throughout the entire procedure. Prior to starting time-out was performed. The patient was placed in the left lateral recumbent position. Procedural sedation was administered. Examination began with a thorough inspection of the perianal area there was no evidence of fissures, fistulae, external hemorrhoids or cutaneous malignancy. The colonoscopy scope was then placed into the anal canal and was advanced to the cecum, which was identified by the ileocecal valve, the appendiceal orifice and the confluence of the taenia. The scope was then slowly withdrawn examining colon thoroughly in all directions, irrigating it of any residual stool. FINDINGS 1. Cecum-3 mm polyp removed with biopsy forceps 2. Sigmoid-mild diverticulosis The patient tolerated the procedure well. They will be discharged once criteria are met. The prep was of good/excellent quality. The withdrawl time was 6 minutes. The sedation time was 28 minutes. Specimen(s): other (Cecal polyp) Complications: none Impression: Colonic polyp Post-procedure Plan for aftercare: Will notify with biopsy results Disposition: same day surgery
[2022-06-25 09:10] VITALS: BP 117/73; PULSE 69; RESP 15; TEMP 36.7; O2SAT 98
[2022-06-25 09:15] VITALS: BP 118/72; PULSE 76; RESP 16; O2SAT 98
[2022-06-25 09:23] VITALS: BP 131/75; PULSE 72; RESP 18; TEMP 36.1; O2SAT 99
--- NOTE | 2022-06-25 09:40 | SUR.PHASEII ---
Pt given discharge instructions . pt state she understands discharge instructions. Pt to be discharged with her daughter.
== END 2022-06-25 09:48 | disposition home or self-care (01) ==
PROVIDERS: PCP Family Medicine; Referring Provider Surgery; Visit Provider Surgery
PROC: 0DJD8ZZ Inspection of Lower Intestinal Tract, Via Natural or Artificial Opening Endoscopic (ICD-10-PCS; CPT 45378; principal; 2022-06-25 08:45)
DX: Z12.11 Encounter for screening for malignant neoplasm of colon (principal); Z86.010 Personal history of colon polyps; K57.30 Diverticulosis of large intestine without perforation or abscess without bleeding; D12.0 Benign neoplasm of cecum
CPT/HCPCS: 45380; 99152; 99153; J2250; J3010

== ENCOUNTER → 2024-06-21 09:32 | Outpatient (CLI) | payer MEDICARE, OTHER, SELFPAY ==
[2021-07-06 06:40] VITALS: BMI 24.1
--- NOTE | 2024-06-21 09:33 | DI.RAD.S_ITS ---
PROCEDURE: XR CHEST 2V INDICATIONS: pneumonia TECHNIQUE: 2 views of the chest were acquired. COMPARISON: None. FINDINGS: Surgical changes and devices: None. Lungs and pleura: Lungs are clear. No pleural effusions or pneumothorax. Mediastinum: Mediastinal contours are normal. Heart size is normal. Bones and chest wall: No suspicious bony abnormalities. Soft tissues appear unremarkable. IMPRESSION: No acute cardiopulmonary abnormality is seen. Approved by: Ki Izaguirre M.D. on 06/21/2024 at 18:05
== END ==
LOC: RAD 09:33
PROVIDERS: PCP Family Medicine; Referring Provider Family Medicine; Visit Provider Family Medicine
DX: J18.9 Pneumonia, unspecified organism (principal)
CPT/HCPCS: 71046

== ENCOUNTER → 2024-07-10 13:53 | Outpatient (CLI) | payer MEDICARE, OTHER, SELFPAY ==
[2021-07-06 06:40] VITALS: BMI 24.1
== END ==
PROVIDERS: PCP Family Medicine; Visit Provider Nurse Practitioner Family
DX: R30.0 Dysuria (principal)
CPT/HCPCS: 87086

== ENCOUNTER → 2024-10-14 11:33 | Outpatient (CLI) | payer MEDICARE, OTHER, SELFPAY ==
[2021-07-06 06:40] VITALS: BMI 24.1
--- NOTE | 2024-10-14 11:35 | DI.MG.S_ITS ---
BILATERAL DIGITAL SCREENING MAMMOGRAM 3D/2D WITH CAD: 10/14/2024 CLINICAL: Routine screening. Comparison is made to exams dated: 07/18/2021 mammogram - [facility], 11/01/2019 mammogram, and 10/25/2018 mammogram - outside. The breasts are heterogeneously dense, which may obscure small masses (category c / 51-75% glandular tissue). Current study was also evaluated with a Computer Aided Detection (CAD) system. There are benign vascular calcifications in both breasts. No significant masses, calcifications, or other findings are seen in either breast. There has been no significant interval change. IMPRESSION: BENIGN There is no mammographic evidence of malignancy. A 1 year screening mammogram is recommended. Based on the Tyrer Cuzick model (a risk assessment model) the patient's lifetime risk is 6.0% and her 10 year risk is 0.0%. According to the ACR, ACS, and NCCN guidelines, an annual breast MRI exam along with mammogram is recommended if the patient's lifetime risk is 20% or greater. This exam was interpreted at Station ID: [id number]. NOTE: For mammograms, a report in lay terms will be sent to the patient. Approximately 15% of breast malignancies will not be visualized mammographically. In the management of a palpable breast mass, a negative mammogram must not discourage biopsy of a clinically suspicious lesion. Electronically Signed By: Jimy stoner/memo:10/15/2024 15:55:04 letter sent: Normal Exam ACR BI-RADS Category 2: Benign
--- NOTE | 2024-10-14 12:43 | DI.RAD.S_ITS ---
PROCEDURE: XR CHEST 2V INDICATIONS: cough TECHNIQUE: 2 views of the chest were acquired. COMPARISON: [facility], CR, XR CHEST 2V, 06/21/2024, 9:32. FINDINGS: Surgical changes and devices: None. Lungs and pleura: Lungs are clear except for persistent chronic interstitial changes. No pleural effusions or pneumothorax. Mediastinum: Mediastinal contours are normal. Heart size is normal. Bones and chest wall: No suspicious bony abnormalities. Soft tissues appear unremarkable. IMPRESSION: No definite acute cardiopulmonary abnormality is seen with chronic interstitial changes noted Dictated by: Isaiah Rider M.D. on 10/14/2024 at 14:18 Approved by: Isaiah Rider M.D. on 10/14/2024 at 14:19
== END ==
PROVIDERS: PCP Family Medicine; Referring Provider Family Medicine; Visit Provider Family Medicine
DX: Z12.31 Encounter for screening mammogram for malignant neoplasm of breast (principal); R92.333 Mammographic heterogeneous density, bilateral breasts; R05.9 Cough, unspecified
CPT/HCPCS: 71046; 77063; 77067

== ENCOUNTER → 2025-04-19 10:51 | Outpatient (CLI) | payer MEDICARE, OTHER, SELFPAY ==
[2021-07-06 06:40] VITALS: BMI 24.1
[2025-04-19 12:40] LABS: Cholesterol 241 mg/dL (140-199); HDL Cholesterol 60 mg/dL (40-60); LDL Cholesterol Calculated 163 mg/dL (<100); Triglycerides 89 mg/dL (35-150)
== END ==
LOC: LAB 10:53
PROVIDERS: PCP Family Medicine; Referring Provider Physician Assistant; Visit Provider Physician Assistant
DX: E78.2 Mixed hyperlipidemia (principal)
CPT/HCPCS: 36415; 80061

== ENCOUNTER → 2025-04-26 12:43 | Outpatient (CLI) | payer MEDICARE, OTHER, SELFPAY ==
[2021-07-06 06:40] VITALS: BMI 24.1
[2025-04-26 14:50] LABS: Add Manual Diff / Slide Review NO; Hematocrit 38.0 % (36-46); Hemoglobin 12.8 g/dL (12.0-16.0); Lymphocytes Absolute Auto 1400 /uL (1100-4500); Mean Corpuscular HGB Conc 33.8 % (30-36); Mean Corpuscular Hemoglobin 32.4 PG (26-34); Mean Corpuscular Volume 96.0 fL (80-100); Platelet Count 268 X10^3/uL (150-400)
[2025-04-26 15:12] LABS: Iron 108 ug/dL (37-170)
[2025-04-26 15:23] LABS: Percent Iron Saturation 33 % (15-50); Total Iron Binding Capacity 323 ug/dL (265-497); Transferrin 285 mg/dL (206-381)
[2025-04-26 15:48] LABS: HEMOLYSIS < 15 (0-50); TSH w/ Reflex to FT4 1.60 uIU/mL (0.47-4.68)
[2025-04-26 15:52] LABS: Ferritin 32 ng/mL (11-264)
[2025-04-26 16:07] LABS: Vitamin B12 571 pg/mL (239-931)
[2025-04-26 16:39] LABS: Vitamin D 25 Hydroxy (D3) 101 ng/mL (30.0-100.0)
== END ==
PROVIDERS: Physician Assistant; PCP Family Medicine; Referring Provider Family Medicine; Visit Provider Family Medicine
DX: R26.89 Other abnormalities of gait and mobility (principal); R25.1 Tremor, unspecified; M81.0 Age-related osteoporosis without current pathological fracture; R53.83 Other fatigue; M06.9 Rheumatoid arthritis, unspecified; D64.9 Anemia, unspecified
CPT/HCPCS: 36415; 82306; 82607; 82728; 83540; 83550; 84443; 85025

== ENCOUNTER → 2025-09-01 16:30 | Outpatient (CLI) | payer MEDICARE, OTHER, SELFPAY ==
[2021-07-06 06:40] VITALS: BMI 24.1
--- NOTE | 2025-09-01 16:33 | DI.RAD.S_ITS ---
PROCEDURE: XR ELBOW RT MIN 3V
== END ==
PROVIDERS: PCP Family Medicine; Referring Provider Physician Assistant; Visit Provider Physician Assistant
DX: M70.21 Olecranon bursitis, right elbow (principal); M79.89 Other specified soft tissue disorders
CPT/HCPCS: 73080